=== PATIENT | female | born 1980 | race African-American/Black ===

== ENCOUNTER → 2022-07-20 08:52 | Outpatient (BNVA) | payer MEDICAID, SELFPAY | PROVIDERS: PCP Internal Medicine; Visit Provider Surgery | DX: L72.3 Sebaceous cyst (principal) | CPT/HCPCS: 99202 ==

== ENCOUNTER 2022-07-28 08:38 | Day surgery (SDC) | payer MEDICAID, SELFPAY ==
--- NOTE | 2022-07-27 08:12 | MHC.SHP ---
Pre-Procedural Eval Section A Date of Service: 07/27/22 The patient is an INPATIENT: No Changes since office visit: No Cold of Flu in the past 2 weeks, No New Medical Problems, No Changes in Medication and No Patient answered all questions The History & Physical has been completed within 30 days and I have reviewed it.: Yes Section B Chief Complaint: Sebaceous cyst Allergies: Allergies Allergy/AdvReac Type Severity Reaction Status Date / Time ibuprofen [IBUPROFEN] Allergy Unknown UNKNOWN Unverified 07/20/22 09:03 latex [LATEX] Allergy Unknown UNKNOWN Unverified 07/20/22 09:03 Plan I have reviewed the history and physical and performed a pertinent physical examination on my patient. No changes have occurred unless specified. Time Spent With Patient Time: Total time managing care of this patient today ____ minutes.
--- NOTE | 2022-07-27 13:01 | HO.ANESPROP2 ---
HPI - Anesthesia Eval Consult details Narrative: 42yo F for Right Excision Mid Back Mass PMFSH Active Problems Active Problems: All Active Problems (Updated 07/20/22 @ 09:17 by Rory Stack MD) Sebaceous cyst (Acute) Past Medical History Medical History Hypertension Family History Family History Paternal Grandmother Hx of malignant neoplasm of bone Social History Social History Alcohol intake: current Alcohol intake frequency: holidays/special occasions only Patient Tobacco Use Status: Never used Tobacco Meds Allergies Allergy/AdvReac Type Severity Reaction Status Date / Time ibuprofen [IBUPROFEN] Allergy Severe Anaphylaxis Verified 07/28/22 10:04 latex [LATEX] Allergy Severe Eye Verified 07/28/22 10:04 Swelling nut - unspecified Allergy Intermediate Itching Verified 07/28/22 09:28 Home Medications Medication Instructions Recorded Confirmed Last Taken Type losartan 50 mg tablet 50 mg PO DAILY 07/20/22 07/28/22 Unknown History chlorthalidone 50 mg tablet 50 mg PO DAILY 07/28/22 07/28/22 Unknown History cholecalciferol (vitamin D3) 50 50 mcg PO DAILY 07/28/22 07/28/22 Unknown History mcg (2,000 unit) capsule (Vitamin D3) Exam Exam Date and Time: July 27, 2022 1301 Assessment and Plan Assessment Anesthesia Assessment: Chart Reviewed
[2022-07-28 09:29] VITALS: BMI 43.1
[2022-07-28 09:36] LABS: UPreg QC Valid YES; Urine Pregnancy NEGATIVE (NEGATIVE)
[2022-07-28 09:41] VITALS: BP 133/78; PULSE 66; RESP 16; TEMP 36.4; O2SAT 98
--- NOTE | 2022-07-28 09:56 | P.CONAN_ITS ---
[facility] Active Problems Active Problems: All Active Problems (Updated 07/20/22 @ 09:17 by Rory Stack MD) Sebaceous cyst (Acute) Past Medical History Medical History Hypertension Family History Family History Paternal Grandmother Hx of malignant neoplasm of bone Surgical History History of Problems with Anesthesia: No Social History Social History Alcohol intake: current Alcohol intake frequency: holidays/special occasions only Patient Tobacco Use Status: Never used Tobacco Use of substances other than those prescribed or required for medical reasons: No Are you DNR?: No Advance Directives: No Advance Directives Information Provided: Yes Recently lost weight without trying: No Nutrition Risks: No Nutritional Risk Meds Allergies Allergy/AdvReac Type Severity Reaction Status Date / Time ibuprofen [IBUPROFEN] Allergy Severe Anaphylaxis Unverified 07/28/22 09:27 latex [LATEX] Allergy Severe Eye Unverified 07/28/22 09:27 Swelling nut - unspecified Allergy Intermediate Itching Verified 07/28/22 09:28 Active Medications: Current Medications Lactated Ringer's (Lr) 1,000 mls @ 100 mls/hr IVCONT .Q10H TRAV Home Medications Medication Instructions Recorded Confirmed Last Taken Type losartan 50 mg tablet 50 mg PO DAILY 07/20/22 07/28/22 Unknown History chlorthalidone 50 mg tablet 50 mg PO DAILY 07/28/22 07/28/22 Unknown History cholecalciferol (vitamin D3) 50 50 mcg PO DAILY 07/28/22 07/28/22 Unknown History mcg (2,000 unit) capsule (Vitamin D3) Exam Exam Date and Time: July 28, 2022 0956 Height,Weight and Vital Signs: Height 5 ft 9 in Weight 132.449 kg Last Vital Signs Temp 97.5 F 07/28/22 09:41 Pulse 66 07/28/22 09:41 Resp 16 07/28/22 09:41 BP 133/78 07/28/22 09:41 Pulse Ox 98 07/28/22 09:41 O2 Del Method Room Air 07/28/22 09:41 Pertinent Lab Results Pertinent Lab Results: Laboratory Tests 07/28/22 09:10 Urine Test NEGATIVE Airway Mallampati Class: II TM Dist: >3cm Neck ROM: Full Loose/Missing/Broken Teeth: No Heart: RRR Lungs: CTA Assessment and Plan Assessment Anesthesia Assessment: Anesthesia Plan Discussed and Chart Reviewed Final Anesthetic Review History of Problems with Anesthesia: No NPO: Yes ASA Class: III Final Preanesthetic Review: Meds/Allgs Chart Reviewed, Consent Obtained/Reviewed and Anes Risks/Benef Reviewed Patient Risk: Intermediate Procedure Risk: Low Anesthetic Plan Anesthetic Plan: MAC: Disposition: Standard PACU
[2022-07-28] MEDS: Lactated Ringers 1,000 ML 100 ML IVCONT (10:05)
[2022-07-28 10:40] VITALS: BP 120/72; PULSE 85; RESP 18; TEMP 36.7; O2SAT 95
--- NOTE | 2022-07-28 10:43 | W.PM.OPN ---
Operative Note Operative Note Date of Service: 07/28/22 Narrative: Preop diagnosis; Large right mid back sebaceous cyst Postop diagnosis: [] Same Procedure [] excision large right mid back sebaceous cyst Surgeon: [] Sreekanth Aoc Director Intelligence Officer: [] Type of Anesthesia: [] MAC Indication for surgery: [] Final specimen size approximately 10 by 6 cm including overlying skin with punctum consisting of a large sebaceous cyst. Specimen sent to pathology. Findings: [] Patient was brought to the operating room, placed on the operative table in supine position, after adequate level of MAC anesthesia was induced, patient was placed in left lateral decubitus position and after prepping and draping in usual sterile fashion, the premarked think excision area was infiltrated with a combination of 0.5% Marcaine and 1% lidocaine, and a transverse bi- elliptical incision was used to encompass the mass in question along with surrounding sent skin including the punctum. This carried down through skin, subcutaneous tissue, were superior and inferior skin flaps were developed sharply and with Bovie. Mass was subsequently circumferentially dissected out with dimensions as described above. Specimen sent to pathology. Wound was irrigated, secured hemostasis, and closed using interrupted inverted dermal 3-0 Vicryl sutures followed by Steri-Strips and sterile dressings. Sponge, needle, and instrument counts were reported to be correct. Patient tolerated the procedure well and emerged anesthesia stable condition. EBL minimal
[2022-07-28 10:55] VITALS: BP 141/88; PULSE 92; RESP 20; O2SAT 97
== END 2022-07-28 12:10 | disposition home or self-care (01) ==
PROVIDERS: Nurse Practitioner; PCP Internal Medicine; Visit Provider Surgery
PROC: (CPT 11406; principal; 2022-07-28 10:30)
DX: L72.0 Epidermal cyst (principal); I10 Essential (primary) hypertension
CPT/HCPCS: 11406; 81025; 88304; J0690; J2250; J3010

== ENCOUNTER → 2022-08-05 13:29 | Outpatient (BNVA) | payer MEDICAID, SELFPAY | PROVIDERS: PCP Internal Medicine; Visit Provider Surgery | DX: L72.3 Sebaceous cyst (principal) | CPT/HCPCS: 99212 ==

== ENCOUNTER → 2022-08-16 12:56 | Outpatient (BNVA) | payer MEDICAID, SELFPAY | PROVIDERS: PCP Internal Medicine; Referring Provider Internal Medicine; Visit Provider Internal Medicine | DX: R07.2 Precordial pain (principal); I10 Essential (primary) hypertension; E66.01 Morbid (severe) obesity due to excess calories; Z68.41 Body mass index [BMI] 40.0-44.9, adult; Z79.899 Other long term (current) drug therapy | CPT/HCPCS: 93005; 99202 ==

== ENCOUNTER → 2022-09-03 12:27 | Outpatient (REF) | payer MEDICAID, SELFPAY ==
--- NOTE | 2022-09-03 12:31 | CA_ITS ---
Transthoracic Echocardiogram Patient (Last, First, Middle): Leydi Ornelas L Gender: Female Date of : 1980 Age: 42 Procedure Date: 09/03/2022 Procedure Type: Transthoracic Echocardiogram Location: OP Height: 175.26 cm Weight: 132.45 kg BSA: 2.43 m2 Heart Rate: bpm BP: 130 / 70 mmHg Staff Development Coordinator Rn: TO Referring MD: Anthony Salcido MD Symptoms: R07.2 - Precordial pain Study Quality: Adequate Conclusions: - Normal left ventricular size and systolic function. There is mildly increased left ventricular wall thickness. The visually estimated ejection fraction is between 55-60%. - Diastolic function is normal for age. - Normal right ventricular cavity size and systolic function. - There is mild dilatation of the sinuses of Valsalva measuring 3.50 cm. Findings Left Ventricle Normal left ventricular size and systolic function. There is mildly increased left ventricular wall thickness. The visually estimated ejection fraction is between 55-60%. There is no evidence of regional wall motion abnormalities. Diastolic function is normal for age. Right Ventricle Normal right ventricular cavity size and systolic function. Atria Both atria are normal in size. Aortic Valve Normal aortic valve structure and function. There is no aortic valve stenosis. There is no aortic valve regurgitation. Mitral Valve Normal mitral valve structure and function. There is no mitral valve regurgitation. There is no mitral valve stenosis. Pulmonic Valve Normal pulmonic valve structure and function. There is trace pulmonic valve regurgitation. Tricuspid Valve Normal tricuspid valve structure and function. There is no tricuspid valve regurgitation. Normal right atrial pressure. There is no evidence of pulmonary hypertension. Great Vessels There is mild dilatation of the sinuses of Valsalva measuring 3.50 cm. The visualized portions of the pulmonary artery and branches are normal. Venous The inferior vena cava is normal in size and collapses greater than 50% with inspiration. Pericardium/Pleural There is no evidence of pericardial effusion. Prior Study Comparison No prior study available for comparison. Measurements 2D Linear Measurements IVSd: 1.07 0.6-0.9/0.6-1.0 cm LVIDd: 5.08 3.9-5.3/4.2-5.9 cm LVIDd Index: 2.09 2.4-3.2/2.2-3.1 cm/m2 LVIDs: 3.27 2.0-3.6 cm LVPWd: 0.95 0.7-1.1 cm LA Diam: 3.50 2.7-3.8/3.0-4.0 cm LAIDs Index: 1.44 1.5-2.3 cm/m2 LV Mass: 235.10 67-162/88-224 g LV Mass Index: 96.75 43-95/49-115 g/m2 LVOT Diam: 2.20 3.0+(-)1.3 cm 2D Systolic Function EF 4C: 56.50 >55% EF 2C: 59.90 >55% EF BiP: 57.60 >55% Mitral Valve MV Pk E: 0.72 MV PK A: 0.71 MV Decel Time: 204.00 E/A: 1.00 E'Lateral: 12.00 E'Medial: 8.59 E/E' Med: 8.40 E/E' Lat: 6.00 PHT: 60.00 MVA PHT: 3.67 Decel [place]: 3.54 Aortic Valve AoV Pk Patrick: 1.31 AoV Mn Patrick: 0.91 AoV VTI: 0.29 AoV Pk Grad: 7.00 Aov Mn Grad: 4.00 SANDRA Cont.VTI: 2.75 LVOT LVOT Pk Patrick: 0.97 LVOT Mn Patrick: 0.63 LVOT VTI: 0.21 LVOT Pk Grad: 4.00 LVOT Mn Grad: 2.00 LVOT Diam: 2.20 LVOT Area: 3.80 Diastolic Function MV Pk E: 0.72 MV Pk A: 0.71 E/A: 1.00 E'Medial: 8.59 E/E' Med: 8.40 E' Laterial: 12.00 E/E' Lat: 6.00 Right Ventricle TAPSE (mm): 17.10 TVS' Patrick: 10.80 Tricuspid Valve TR Pk Patrick: 1.30 TR Pk Grad: 7.00 RA Press: 3.00 RVSP: 10.00 Great Vessels Aorta Sinus of Valsalva: 3.50 2.0-3.[address] [place]: 2.76 1.7-3.4 cm Ao Asc: 3.00 2.1-3.4 cm Updated in Other Vendor System with Status of Final Tato Whalen MD electronically signed on 09/05/2022 3:45:30 PM with status of Final
== END ==
LOC: HO.CARD 12:27
PROVIDERS: PCP Internal Medicine; Visit Provider Internal Medicine
DX: R07.2 Precordial pain (principal); I10 Essential (primary) hypertension
CPT/HCPCS: 93306

== ENCOUNTER → 2022-09-09 13:53 | Outpatient (REF) | payer MEDICAID, SELFPAY | LOC: HO.SL 13:53 | PROVIDERS: PCP Internal Medicine; Visit Provider Internal Medicine | DX: G47.33 Obstructive sleep apnea (adult) (pediatric) (principal); I10 Essential (primary) hypertension | CPT/HCPCS: 95806 ==

== ENCOUNTER 2022-10-21 10:14 | Outpatient (REF) | payer MEDICAID, SELFPAY ==
[2022-10-21 11:21] LABS: MANUAL DIFF FLAG NO
[2022-10-21 12:15] LABS: Basophils Percent Auto 0.2 % (0-2); Eosinophils Absolute Auto 0.2 X10*3/uL (0.0-0.4); Eosinophils Percent Auto 2.1 % (0-4); Hematocrit 39.7 % (37.0-47.0); Hemoglobin 12.6 g/dl (12.0-16.0); Imm Gran Abs Auto 0.03 X10*3/uL (0.00-0.03); Imm Gran Pct Auto 0.3 % (0.0-0.4); Lymphocytes Absolute Auto 1.9 X10*3/uL (1.2-4.9); Lymphocytes Percent Auto 21.3 % (20-40); Mean Corpuscular HGB Conc 31.7 g/dl (31.0-35.0); Mean Corpuscular Hemoglobin 27.3 pg (27.0-33.0); Mean Corpuscular Volume 86.1 fL (80.0-98.0); Mean Platelet Volume 10.9 fL (9.4-12.3); Monocytes Absolute Auto 0.7 X10*3/uL (0.1-1.2); Monocytes Percent Auto 7.2 % (2-11); Neutrophils Absolute Auto 6.3 x10*3/uL (2.0-8.3); Neutrophils Percent Auto 68.9 % (45-73); Platelet Count 282 X10*3/uL (160-400); Red Blood Count 4.61 X10*6/uL (4.20-5.50); Red Cell Distribution Width 13.6 % (11.0-16.0); White Blood Count 9.1 X10*3/uL (4.8-10.8)
[2022-10-21 12:19] LABS: Estimated Average Glucose 97 mg/dL
[2022-10-21 12:59] LABS: Anion Gap 14 (12-20); Blood Urea Nitrogen 8 mg/dL (9-16); Calcium 9.4 mg/dL (8.4-10.2); Carbon Dioxide 25 mmol/L (22-29); Chloride 101 mmol/L (96-108); Cholesterol 189 mg/dL; Estimated Glomerular Filt Rate > 60; Glucose Random 103 mg/dL (60-115); HDL Cholesterol 37 mg/dL; LDL Cholesterol Calculated 131 mg/dl; Sodium 137 mmol/L (135-145); TSH reflex Free T4 1.79 uIU/mL (0.32-4.0); Triglycerides 106 mg/dL
== END 2022-10-21 10:15 | disposition home or self-care (01) ==
LOC: HO.HHCL 10:14
PROVIDERS: Visit Provider Internal Medicine
DX: I10 Essential (primary) hypertension (principal)
CPT/HCPCS: 36415; 80048; 80061; 83036; 84443; 85025

== ENCOUNTER 2022-10-28 18:37 | Outpatient (REF) | payer MEDICAID, SELFPAY ==
[2022-10-29 09:38] LABS: BV Int Neg Control Negative (Negative); BV Int Pos Control Positive (Positive)
[2022-11-05 02:14] LABS: HPV mRNA E6/E7 rflx Not Detected (Not Detected)
== END 2022-10-28 18:38 | disposition home or self-care (01) ==
LOC: HO.HHCLNP 18:37
PROVIDERS: Visit Provider Internal Medicine
DX: Z12.4 Encounter for screening for malignant neoplasm of cervix (principal); Z11.51 Encounter for screening for human papillomavirus (HPV)
CPT/HCPCS: 87480; 87510; 87624; 87660; 88142

== ENCOUNTER 2022-11-11 09:44 | Outpatient (REF) | payer MEDICAID, SELFPAY ==
[2022-11-11 11:11] LABS: MANUAL DIFF FLAG NO
[2022-11-11 11:35] LABS: Basophils Percent Auto 0.4 % (0-2); Eosinophils Absolute Auto 0.2 X10*3/uL (0.0-0.4); Eosinophils Percent Auto 2.5 % (0-4); Hematocrit 38.3 % (37.0-47.0); Hemoglobin 12.4 g/dl (12.0-16.0); Imm Gran Abs Auto 0.02 X10*3/uL (0.00-0.03); Imm Gran Pct Auto 0.3 % (0.0-0.4); Lymphocytes Absolute Auto 1.9 X10*3/uL (1.2-4.9); Lymphocytes Percent Auto 26.4 % (20-40); Mean Corpuscular HGB Conc 32.4 g/dl (31.0-35.0); Mean Corpuscular Hemoglobin 27.8 pg (27.0-33.0); Mean Corpuscular Volume 85.9 fL (80.0-98.0); Mean Platelet Volume 11.2 fL (9.4-12.3); Monocytes Absolute Auto 0.5 X10*3/uL (0.1-1.2); Monocytes Percent Auto 6.5 % (2-11); Neutrophils Absolute Auto 4.6 x10*3/uL (2.0-8.3); Neutrophils Percent Auto 63.9 % (45-73); Platelet Count 267 X10*3/uL (160-400); Red Blood Count 4.46 X10*6/uL (4.20-5.50); Red Cell Distribution Width 13.3 % (11.0-16.0); White Blood Count 7.2 X10*3/uL (4.8-10.8)
[2022-11-11 11:38] LABS: Estimated Average Glucose 100 mg/dL; Hemoglobin A1c % 5.1 %
[2022-11-11 11:59] LABS: Anion Gap 11 (12-20); Blood Urea Nitrogen 9 mg/dL (9-16); Calcium 9.4 mg/dL (8.4-10.2); Carbon Dioxide 30 mmol/L (22-29); Chloride 103 mmol/L (96-108); Cholesterol 184 mg/dL; Estimated Glomerular Filt Rate > 60; Glucose Random 100 mg/dL (60-115); HDL Cholesterol 35 mg/dL; LDL Cholesterol Calculated 124 mg/dl; Potassium 3.1 mmol/L (3.3-5.1); Sodium 141 mmol/L (135-145); Triglycerides 126 mg/dL
[2022-11-11 12:15] LABS: TSH reflex Free T4 1.93 uIU/mL (0.32-4.0)
== END 2022-11-11 09:45 | disposition home or self-care (01) ==
LOC: HO.HHCL 09:44
PROVIDERS: Visit Provider Internal Medicine
DX: I10 Essential (primary) hypertension (principal)
CPT/HCPCS: 36415; 80048; 80061; 83036; 84443; 85025

== ENCOUNTER 2022-11-23 12:55 | Outpatient (AMB) | payer MEDICAID, SELFPAY ==
[2022-11-23 12:58] VITALS: BP 116/82; PULSE 90; BMI 42.8
--- NOTE | 2022-11-23 12:58 | MHC.OFFVIS ---
Intake Vital Signs 11/23/22 12:58 Height 5 ft 9 in Weight 290 lb 2.053 oz BMI 42.8 BP 116/82 Blood Pressure Location Lt brachial Position Sitting Pulse 90 Pulse Source Pulse Oximeter Intake Visit Reasons: 3 month follow up after testing per HS Intake Note: 3 month follow up after echo and sleep study. Education Adviser Required: Yes Education Adviser Language: Hydro Operator Name: Chavo [id number] [employer] Command Ipad Accompanied by: Spouse Allergies ibuprofen [IBUPROFEN] Allergy (Severe, Verified 11/23/22 13:00) Anaphylaxis latex [LATEX] Allergy (Severe, Verified 11/23/22 13:00) Eye Swelling nut - unspecified Allergy (Intermediate, Verified 11/23/22 13:00) Itching Medication List - Last Reconciled 11/23/22 by Riya Joe NP-Rashawn chlorthalidone 50 mg PO DAILY cholecalciferol (vitamin D3) (Vitamin D3) 50 mcg PO DAILY losartan 50 mg PO DAILY HPI 3 month follow up after testing per HS HPI Details Leydi is a 42-year-old female with past medical history of morbid obesity, hypertension who was evaluated for atypical chest pain and recently underwent an echocardiogram and sleep study. She now presents for follow-up. Today she reports that she continues to get a pressure on her right right side periodically when she is laying down. If she repositions herself or stands up it improves. She denies any exertional chest discomfort. She denies shortness of breath with activity, palpitations, dizziness, presyncope, syncope, PND, orthopnea or edema. She reports good activity tolerance and that she walks a lot at work. She is taking her medications as directed. She is asking about recent blood work and what her potassium is. is present. Certified construction project coordinator used. [facility] Medical History Hypertension Morbid obesity Surgical History Encounter for female sterilization procedure Family History Paternal Grandmother Hx of malignant neoplasm of bone Social History Alcohol intake: current Alcohol intake frequency: holidays/special occasions only Patient Tobacco Use Status: Never used Tobacco Review of Systems Const All systems reviewed & are unremarkable except as noted in HPI and below Denies weakness ENT Denies dizziness Card Reports chest pain at rest (Right-sided pressure when laying down), Denies chest pain with activity, Denies syncope, Denies rapid heart rate, Denies pedal edema, Denies edema, Denies leg edema, Denies lightheadedness, Denies palpitations, Denies dyspnea, Denies dyspnea on exertion and Denies orthopnea Resp Denies cough, Denies dyspnea and Denies dyspnea on exertion GI Denies hematochezia and Denies change in stool character Musc Denies abnormal gait, Denies muscle cramps, Denies muscle weakness, Denies numbness, Denies radiating pain into limb and Denies tingling Neuro Denies abnormal gait, Denies dizziness, Denies syncope, Denies numbness, Denies tingling and Denies weakness Endo Denies palpitations Physical Exam Vital Signs: Last Vital Signs Pulse 90 11/23/22 12:58 BP 116/82 11/23/22 12:58 BMI result Body Mass Index 42.8 Const General: cooperative, healthy appearing, comfortable and no acute distress Orientation/consciousness: patient oriented x3 Neck Neck: Yes normal visual inspection Resp Effort & Inspection: normal respiratory effort Auscultation: clear to auscultation bilaterally, no crackles, no rales, no rhonchi and no wheezes Cardio Jugular venous distension: no JVD Rate: regular rate Rhythm: regular rhythm Heart sounds: S1 normal heart sound present, S2 normal heart sound present, no murmurs and no rubs Neuro General: patient oriented x3 Extrem General: Yes normal to inspection Psych Appearance: grossly normal Mental Status: mental status grossly normal Speech and movement: Normal speech and movement present Assessment & Plan Assessment & Plan (1) Precordial chest pain: Code(s): R07.2 - Precordial pain Plan: Atypical sounding chest discomfort, nonexertional. Cardiac risk factors of hypertension and morbid obesity. Evaluation by Dr. Salcido and felt to be noncardiac. EKG done on 08/16/2022 shows normal sinus rhythm no acute ST or T-wave abnormalities, rate 67. An echocardiogram was done on 09/03/2022 showing EF 55-60%, diastolic function normal, mild dilation of the sinus of Valsalva, 3.5 cm. No regional wall motion abnormalities reported. Today she continues to report atypical sounding discomfort. Recommend evaluation for noncardiac causes if warranted. Signs and symptoms of true angina reviewed with her. Continue cardiac risk factor modification. Weight loss would be beneficial. Cardiology follow-up as needed (2) Hypertension: Code(s): I10 - Essential (primary) hypertension Plan: Blood pressure is well controlled. She is on losartan and chlorthalidone as prescribed by her PCP. She is asking about recent lab work which did show potassium 3.1. Verbally instructed to increase the potassium intake in her diet. Recommend recheck of electrolytes in the near future. If potassium continues to remain low then would change chlorthalidone to alternate antihypertensive agent. Can be managed by PCP (3) Morbid obesity: Code(s): E66.01 - Morbid (severe) obesity due to excess calories Plan: Weight loss recommended. Coding Level of Care Code Est Pt Level 3 (75906) Diagnoses Precordial chest pain R07.2 Hypertension I10 Morbid obesity E66.01 Time Spent (min) 22 Comment Chart review, documentation, interview, assessment
== END 2022-11-23 13:29 | disposition home or self-care (01) ==
PROVIDERS: PCP Internal Medicine; Referring Provider Internal Medicine; Visit Provider Nurse Practitioner Family
DX: R07.2 Precordial pain (principal); I10 Essential (primary) hypertension; E66.01 Morbid (severe) obesity due to excess calories
CPT/HCPCS: 99213

== ENCOUNTER → 2022-11-23 12:55 | Outpatient (BNVA) | payer MEDICAID, SELFPAY | PROVIDERS: PCP Internal Medicine; Referring Provider Internal Medicine; Visit Provider Nurse Practitioner Family | DX: R07.2 Precordial pain (principal); I10 Essential (primary) hypertension; E66.01 Morbid (severe) obesity due to excess calories; Z68.41 Body mass index [BMI] 40.0-44.9, adult; Z79.899 Other long term (current) drug therapy | CPT/HCPCS: 99212; 99213 ==

== ENCOUNTER 2023-07-11 09:57 | Outpatient (REF) | payer MEDICAID, SELFPAY ==
--- NOTE | ~2023-07-11 | MM_ITS ---
EXAMINATION: MM SCREENING DIGITAL BREAST TOMOSYNTHESIS, BILATERAL CLINICAL INFORMATION: Screening. Asymptomatic. COMPARISON: Mammography: This is a baseline study. TECHNIQUE: Digital breast tomosynthesis is performed in both the craniocaudal and mediolateral oblique views along with computer-aided detection (CAD). Synthesized 2D images are generated from the tomosynthesis. FINDINGS: There are scattered areas of fibroglandular density (ACR BI-RADS breast composition Category b). There are no significant masses, abnormal calcifications, or other abnormalities. MM/MM tomosynthesis screening BI IMPRESSION: No mammographic evidence of malignancy. ASSESSMENT: BI-RADS BI-RADS 1 - Negative RECOMMENDATION: Routine annual mammography screening. 1 year F/U This examination should not preclude the clinical evaluation of a suspicious palpable abnormality. This patient's information was entered into a reminder system with a target due date for their next mammogram.
== END 2023-07-11 09:58 | disposition home or self-care (01) ==
LOC: HO.MAMMO 09:57
PROVIDERS: PCP Internal Medicine; Visit Provider Internal Medicine
DX: Z12.31 Encounter for screening mammogram for malignant neoplasm of breast (principal)
CPT/HCPCS: 77063; 77067

== ENCOUNTER → 2023-07-11 10:15 | Outpatient (BNV) | payer MEDICAID, SELFPAY | PROVIDERS: PCP Internal Medicine; Visit Provider Radiology Diagnostic Radiology | DX: Z12.31 Encounter for screening mammogram for malignant neoplasm of breast (principal) | CPT/HCPCS: 77063; 77067 ==